=== PATIENT | female | born 1985 | race Two or more races ===

== ENCOUNTER 2019-08-13 11:09 | Emergency (ER) | payer SELFPAY ==
[~2019-08-13] VITALS: Ht 162.6 cm; Wt 46.0 kg
[2019-08-13 11:54] LABS: CLARITY,URINE CLEAR (Clear); COLOR,URINE YELLOW (Yellow); GLUCOSE, URINE NEGATIVE (Neg); KETONES,URINE NEGATIVE (Neg); LEUKOCYTE ESTERASE ,URINE NEGATIVE (Neg); NITRITES, URINE NEGATIVE (Neg); OCCULT BLOOD,URINE LARGE (Neg); PROTEIN,URINE NEGATIVE (Neg); URINE HCG NEGATIVE (NEG)
[2019-08-13 12:07] LABS: URINE AMPHETAMINE SCREEN NEGATIVE (Neg); URINE BARBITUATE SCREEN NEGATIVE (Neg); URINE BENZODIAZEPINES SCREEN NEGATIVE (Neg); URINE CANNABINOID SCREEN POSITIVE (Neg); URINE COCAINE SCREEN NEGATIVE (Neg); URINE METHADONE SCREEN NEGATIVE (Neg); URINE OPIATE SCREEN NEGATIVE (Neg); URINE PHENCYCLIDINE SCREEN NEGATIVE (Neg)
[2019-08-13 12:14] LABS: UA COLLECTION TYPE CLN CATCH MIDSTREAM
[2019-08-13 12:16] LABS: MUCUS STRANDS FEW /LPF (Neg); SQUAMOUS EPITHELIAL CELL,UR MANY /LPF (FEW)
[2019-08-13 12:17] LABS: BACTERIA,URINE FEW /HPF (Neg)
[2019-08-13 12:18] LABS: WBC,URINE 0-4 /HPF (0-4)
[2019-08-13 12:45] LABS: BASOPHILS % (AUTO) 0.5 % (0-1); EOSINOPHILS % (AUTO) 0.2 % (0-6); HEMATOCRIT 42.1 % (35.0-45.0); HEMOGLOBIN 14.2 g/dl (12.0-16.0); LYMPHOCYTES # (AUTO) 1.3 X10'3 (1.1-4.8); LYMPHOCYTES % (AUTO) 18.2 % (21-51); MEAN CORPUSCULAR HEMOGLOBIN 31.7 PG (27.0-31.0); MEAN CORPUSCULAR HGB CONC 33.8 g/dL (33.0-36.5); MEAN CORPUSCULAR VOLUME 93.8 FL (78-98); MEAN PLATELET VOLUME 9.2 FL (7.4-10.4); MONOCYTES # (AUTO) 0.3 X10'3 (0-0.9); MONOCYTES % (AUTO) 4.3 % (2-12); NEUTROPHILS # (AUTO) 5.6 X10'3 (1.8-7.7); NEUTROPHILS % (AUTO) 76.8 % (42-75); PLATELET COUNT 217 X10'3 (140-440); RED BLOOD COUNT 4.48 X10'6 (4.20-5.60); RED CELL DISTRIBUTION WIDTH 13.6 % (11.5-14.5); WHITE BLOOD COUNT 7.3 X10'3 (4.5-11.0)
[2019-08-13 12:55] LABS: ALANINE AMINOTRANSFERASE 32 U/L (12-78); ALBUMIN 4.1 G/DL (3.4-5.0); ALBUMIN/GLOBULIN RATIO 1.2 (1.1-1.5); ALKALINE PHOSPHATASE 57 IU/L (46-116); ANION GAP 8 (8-16); ASPARTATE AMINO TRANSFERASE 21 U/L (10-37); BILIRUBIN,TOTAL 0.4 MG/DL (0.1-1.0); BLOOD UREA NITROGEN 11 MG/DL (7-18); BUN/CREATININE RATIO 20.4 (6.6-38.0); CALCIUM 8.7 MG/DL (8.5-10.1); CHLORIDE 108 MMOL/L (99-107); CREATININE 0.54 MG/DL (0.40-0.90); GLUCOSE 103 MG/DL (70-104); POTASSIUM 4.1 MMOL/L (3.5-5.1); SODIUM 143 MMOL/L (135-145); TOTAL CARBON DIOXIDE 27.4 MMOL/L (24-32); TOTAL PROTEIN 7.5 G/DL (6.4-8.2); eGFR > 90 ML/MIN
--- NOTE | 2019-08-13 13:00 | NUR ---
SPOKE WITH PT MOTHER SANTO AFTER VERBAL CONSENT FROM PT. SANTO STATES PT HAS HAD BOUTS OF DEPRESSION OFF AND ON FOR MANY YEARS. PT WAS ADOPTED AT AGE 5 MONTHS BY SANTO AND HER THEN . SANTO STATES IT WAS HARD FOR PT GROWING UP SHE IS OF MALTESE PARENTS AND PEOPLE WOULD "MISTAKE HER FOR MY FOSTER DAUGHTER AND SONS FRIEND" PER SANTO PT WOULD MAKE STATMENTS LIKE "I DONT LOOK LIKE MY FAMILY" SHE STATES PT FEELS ABANDONED BY HER PARENTS. SANTO STATES PT HAS BEEN IN MULTIPLE VERBAL RELATIONSHIPS, PT HAS LOW SELF ESTEEM, HAS BEEN SELF MEDICATING WITH ETOH AND THC "FOR MANY YEARS." SANTO STATES SHE PICKED UP PT FROM [facility] THIS AM AFTER PT WAS ARRESTED FOR DUI LAST NOC. SANTO STATES THIS IS PTS 2ND DUI. SANTO STATES PT MADE STATMENTS OF SI THIS AM AND HAS MADE STATMENTS IN THE PAST. SANTO STATES PT HAS A PLAN IN HER HEAD ON HOW TO END HER LIFE, BUT HAS NOT FOLLOWED THROUGH BECAUSE OF HER KIDS. PT STATES [facility] CAN CALL SANTO FOR PT HX WHEN THEY GET HERE.
[2019-08-13 13:05] LABS: ETHANOL 0.029 GM/DL (0.0-0.010)
[2019-08-13] MEDS ORDERED: ondansetron 4mg rapidly disintigrating tab PO ONE (13:15)
--- NOTE | 2019-08-13 13:18 | NUR ---
PACKET FAXED TO [facility]
--- NOTE | 2019-08-13 13:30 | NUR ---
PT RESTING WITH EYES CLOSED RR EQUAL AND UNLABORED
--- NOTE | 2019-08-13 13:35 | NUR ---
PT MARQUES BLANCHARD PHONE NUMBER
--- NOTE | 2019-08-13 14:20 | NUR ---
PT RESTING ON RIGHT SIDE EYES CLOSED RR EQUAL AND UNLABORED
--- NOTE | 2019-08-13 17:14 | NUR ---
[facility] AT SPEAKING WITH PT
[2019-08-13] MEDS ORDERED: NO HOME MEDS (17:15)
--- NOTE | 2019-08-13 17:42 | NUR ---
PT MOVED FROM BED 21 TO BED 20 TO MAKE ROOM FOR ANOTHER PT
[2019-08-13] MEDS ORDERED: ibuprofen 200mg tablet PO PRN (18:00)
--- NOTE | 2019-08-13 19:01 | NUR ---
Assumed care of patient, pt. laying in bed sleeping at this time, rr even and unlabored.
--- NOTE | 2019-08-13 19:14 | NUR ---
Pt. sitting up in bed crying at this time, states, "I can't do this, I can't just lay in bed like this." She requests to use telephone to call her mother, telephone provided. Pt. also c/o abdominal cramping r/t monthly cycle, she denies the need for pain medicaion at this time.
[2019-08-13] MEDS ORDERED: hydrOXYzine 25 MG tablet PO ONE (19:45)
--- NOTE | 2019-08-13 19:47 | NUR ---
Obtained order from Dr. Snider for Hydroxyzine, will administer and continue to monitor. Addendum: 08/13/19 at [address] Snider, medication will also help with nausea. Pt. requests chicken broth also at this time, will monitor.
--- NOTE | 2019-08-13 20:00 | NUR ---
Nursing Note: 1:1 completed at bedside, pt. presents as guarded and slightly irritable/anxious and is reluctant to talk with this sba underwriter. She denies any current wish to , states, "I just want to be at home." However, with further questioning pt. reports intense depression with a plan to overdose on Diprivan. Pt. states, "I just want it to be fast and painless." She denies any A/V/VALDEZ and no delusional statements are made. Pt. admits that when she becomes this depressed she experiences loss of appetite and insomnia. She states that her mother is supportive and they have a good relationship.
--- NOTE | 2019-08-13 20:47 | NUR ---
Spoke with pt's mother Domi who was calling to check on pt. Assured her that pt. is resting comfortably at this time. Pt's mother states she will come visit pt. around 1:30 tomorrow.
[2019-08-13] MEDS ORDERED: Melatonin 3mg tablet PO SCH (21:00)
--- NOTE | 2019-08-13 21:00 | NUR ---
Pt. continues to sleep at this time, laying on rt. side, rr even and unlabored.
--- NOTE | 2019-08-13 22:12 | NUR ---
Spoke to Natacha at [facility] regarding possible placement. She will present to her provider and get back to us.
--- NOTE | 2019-08-13 23:00 | NUR ---
Pt. continues to sleep, laying on rt. side, rr even and unlabored. Held scheduled Melatonin per pt. asleep, will continue to monitor.
--- NOTE | 2019-08-14 01:09 | NUR ---
Pt. continues to sleep at this time, laying on her back, appears to be resting comfortably.
--- NOTE | 2019-08-14 03:00 | NUR ---
Pt. continues to sleep, makes occassional body adjustments, rr even and unlabored.
--- NOTE | 2019-08-14 05:01 | NUR ---
Pt. continues to sleep, laying on left side, no s/s of distress.
[2019-08-14 05:17] VITALS: BP 135/55
--- NOTE | 2019-08-14 06:43 | NUR ---
Recieved Pt in bed sleeping w/o distress.
--- NOTE | 2019-08-14 08:30 | NUR ---
Pt awoke for breakfast and returned to lying down under blanket.
== END 2019-08-14 10:14 ==
LOC: EEVIPCON 11:10 → ER 11:10
DX: F32.9 Major depressive disorder, single episode, unspecified (principal); F10.920 Alcohol use, unspecified with intoxication, uncomplicated; R45.851 Suicidal ideations; F12.90 Cannabis use, unspecified, uncomplicated; Y90.9 Presence of alcohol in blood, level not specified
CPT/HCPCS: 36415; 80053; 80305; 80320; 81001; 81025; 84443; 85025; 99285; Z7610

== ENCOUNTER 2022-12-11 10:05 | Emergency (ER) | payer MEDICAID ==
[~2022-12-11] VITALS: Ht 165.1 cm; Wt 53.2 kg
[~2022-12-11 10:05] MED LIST: NO HOME MEDS
[2022-12-11 10:40] LABS: URINE HCG NEGATIVE (NEG)
[2022-12-11 10:42] LABS: CLARITY,URINE CLEAR (Clear); COLOR,URINE STRAW (Yellow); GLUCOSE, URINE NEGATIVE (Neg); KETONES,URINE NEGATIVE (Neg); LEUKOCYTE ESTERASE ,URINE NEGATIVE (Neg); NITRITES, URINE NEGATIVE (Neg); OCCULT BLOOD,URINE MODERATE (Neg); PROTEIN,URINE NEGATIVE (Neg); UA COLLECTION TYPE CLN CATCH MIDSTREAM; UROBILINOGEN,URINE 0.2 E.U/dL (0.2-1.0)
[2022-12-11 10:48] LABS: BACTERIA,URINE FEW /HPF (Neg); MUCUS STRANDS FEW /LPF (Neg); RBC,URINE 0-2 /HPF (0-2); SQUAMOUS EPITHELIAL CELL,UR FEW /LPF (FEW); WBC,URINE 0-4 /HPF (0-4)
[2022-12-11 11:08] LABS: BASOPHILS % (AUTO) 0.6 % (0-1); EOSINOPHILS % (AUTO) 0.8 % (0-6); HEMATOCRIT 41.8 % (35.0-45.0); HEMOGLOBIN 13.8 g/dl (12.0-16.0); LYMPHOCYTES # (AUTO) 1.6 X10'3 (1.1-4.8); MEAN CORPUSCULAR HEMOGLOBIN 31.3 PG (27.0-31.0); MEAN CORPUSCULAR HGB CONC 33.1 g/dL (33.0-36.5); MEAN CORPUSCULAR VOLUME 94.5 FL (78-98); MEAN PLATELET VOLUME 9.2 FL (7.4-10.4); MONOCYTES # (AUTO) 0.4 X10'3 (0-0.9); MONOCYTES % (AUTO) 6.5 % (2-12); NEUTROPHILS # (AUTO) 3.7 X10'3 (1.8-7.7); NEUTROPHILS % (AUTO) 65.1 % (42-75); PLATELET COUNT 198 X10'3 (140-440); RED BLOOD COUNT 4.42 X10'6 (4.20-5.60); RED CELL DISTRIBUTION WIDTH 13.2 % (11.5-14.5); WHITE BLOOD COUNT 5.7 X10'3 (4.5-11.0)
[2022-12-11 11:20] LABS: ALANINE AMINOTRANSFERASE 37 U/L (12-78); ALBUMIN 4.2 G/DL (3.4-5.0); ALBUMIN/GLOBULIN RATIO 1.3 (1.1-1.5); ALKALINE PHOSPHATASE 44 IU/L (46-116); ANION GAP 6 (8-16); ASPARTATE AMINO TRANSFERASE 28 U/L (10-37); BILIRUBIN,TOTAL 0.3 MG/DL (0.1-1.0); BLOOD UREA NITROGEN 14 MG/DL (7-18); CHLORIDE 103 MMOL/L (99-107); CREATININE 0.61 MG/DL (0.40-0.90); GLUCOSE 101 MG/DL (70-104); LIPASE 91 U/L (73-393); POTASSIUM 3.9 MMOL/L (3.5-5.1); SODIUM 140 MMOL/L (135-145); TOTAL CARBON DIOXIDE 30.8 MMOL/L (24-32); TOTAL PROTEIN 7.4 G/DL (6.4-8.2); eGFR > 90 ML/MIN
[2022-12-11 11:40] VITALS: BP 158/113
--- NOTE | 2022-12-11 12:13 | NUR ---
ULTRASOUND AT BEDSIDE
== END 2022-12-11 12:52 | disposition home or self-care (01) ==
LOC: ER 10:06
DX: D25.9 Leiomyoma of uterus, unspecified (principal); N83.291 Other ovarian cyst, right side; N93.8 Other specified abnormal uterine and vaginal bleeding; F32.A Depression, unspecified; Z88.8 Allergy status to other drugs, medicaments and biological substances; Z79.899 Other long term (current) drug therapy
CPT/HCPCS: 36415; 76700; 76830; 76856; 80053; 81001; 81025; 83690; 85025; 93976; 99284